=== PATIENT | female | born 1950 | race Caucasian/White ===

== ENCOUNTER 2016-12-02 07:05 | Emergency (ER) | payer OTHER, MEDICARE ==
[~2016-12-02] VITALS: Ht 170.2 cm; Wt 98.9 kg
[~2016-12-02 07:05] MED LIST: ALTOPREV20 MG PO; ASPIR 8181 M1 PO; CIPRO500 MG PO; COREG12.5 M1 PO; FUROSEMIDE20 MG PO; IRON325 M1 PO; LOVASTATIN20 MG PO; METFORMIN HCL500 MG PO; RAMIPRIL10 MG PO; VITAMIN D35000 UNIT PO
[2016-12-02 07:40] LABS: HEMATOCRIT 31.1 % (36.0-46.0); MCH 28.3 PG (29.0-34.0); MCHC 31.2 G/DL (30.0-36.0); MCV 90.7 FL (83-99); MEAN PLAT.VOLUME 10.1 uM^3 (9.5-12.4); PLATELET COUNT 220 K/uL (156-360); RBC DIS.WIDTH-CV 15.5 % (11.8-14.6); RBC DIS.WIDTH-SD 51.1 % (39-53); RED BLOOD COUNT 3.43 M/uL (3.80-5.20); WHITE BLOOD COUNT 5.9 K/uL (4.1-10.2)
[2016-12-02 08:01] LABS: ANION GAP 9 MEQ/L (2-14); CHLORIDE 106 MEQ/L (99-109); POTASSIUM 4.2 MEQ/L (3.7-5.4); SAMPLE HEMOLYSIS CHECK 0; SAMPLE ICTERIC CHECK 0; SAMPLE LIPEMIA CHECK 0; SODIUM 142 MEQ/L (136-147); TOTAL BILIRUBIN 1.2 MG/DL (0.0-1.0)
[2016-12-02 08:06] LABS: ALKALINE PHOSPHATASE 85 IU/L (3-129); GFR ESTIMATE (CALCULATED) > 59 mL/min/; GLUCOSE 139 mg/dL (70-99); UREA NITROGEN (BUN) 18 mg/dL (9-23)
[2016-12-02 08:10] LABS: TROP-I INTERPRETATION NEGATIVE; TROPONIN-I < 0.01 ng/mL (0.0-0.30)
[2016-12-02] MEDS ORDERED: GUAIFENESIN600 M1 PO (09:40)
[2016-12-02] MEDS ORDERED: TESSALON200 MG PO (09:40)
[2016-12-02] MEDS ORDERED: PROVENTIL HFA6.7 GM IH (09:40)
[2016-12-02 10:06] VITALS: BP 129/57
== END 2016-12-02 10:08 | disposition home or self-care (01) ==
LOC: EME 07:05
PROVIDERS: Nurse Practitioner Family
DX: J20.8 Acute bronchitis due to other specified organisms (principal); I11.0 Hypertensive heart disease with heart failure; I50.9 Heart failure, unspecified; E11.9 Type 2 diabetes mellitus without complications; I44.0 Atrioventricular block, first degree; G47.30 Sleep apnea, unspecified; Z99.81 Dependence on supplemental oxygen; Z79.84 Long term (current) use of oral hypoglycemic drugs; Z79.82 Long term (current) use of aspirin
CPT/HCPCS: 71020; 80053; 83880; 84484; 85027; 93005; 94640; 99281; 99284